=== PATIENT | male | born 2000 | race Caucasian/White ===

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

== ENCOUNTER 2020-03-29 21:11 | Emergency (ER) | payer BC ==
[2020-03-29] MEDS ORDERED: Ketorolac 30 MG/ML SDV IVPUSH ONE (22:29)
--- NOTE | 2020-03-29 23:00 | CR ---
INDICATION: Chest pain TECHNIQUE: Portable upright AP view of the chest COMPARISON: None FINDINGS: The lungs are clear. There is no sizable pleural effusion or pneumothorax. The cardiomediastinal silhouette is normal. The visualized osseous structures are unremarkable. IMPRESSION: No acute intrathoracic process. Dictated by James Siddiqui MD @ Mar 29 2020 10:57PM Signed by Dr. James Siddiqui @ Mar 29 2020 10:58PM
--- NOTE | 2020-03-29 23:44 | EDM.PDOC ---
ED HPI GENERAL MEDICAL PROBLEM - General Chief Complaint: Chest Pain Stated Complaint: CHEST PAIN;BACK PAINLDIFFICULTY BREATHING Time Seen by Provider: 03/29/20 21:35 - History of Present Illness INITIAL COMMENTS - FREE TEXT/NARRATIVE: CHIEF COMPLAINT(S): Chest pain HISTORY OF PRESENT ILLNESS: This is a 20-year-old man without any significant past medical history who comes to the emergency department with a chief complaint of chest pain. 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 He denies any heavy lifting. He states that he started to experience chest pain which is located on the left side of his chest which she describes as sharp and achy and constant. He states that the pain is a 4 out of 10. He states that the pain is exacerbated by deep breathing and is better when he takes smaller breaths. He denies any radiation of this pain. He states that in addition to the chest pain he is experiencing back and neck pain both on the left side which she describes as constant, sharp, and achy. He denies any numbness, tingling, or weakness. He denies any injury. He states he does feel mildly short of breath but denies any cough. He denies any fever, chills, or history of asthma. He denies any recent surgery or history of prior DVT or PE. He denies any family history of clotting disorders. He denies any abdominal pain, nausea or vomiting. He states that he does not have a rash. He denies any personal history or family history of Marfan's disease or connective tissue disorders. He denies any family history of sudden at a young age from cardiac cause. He denies any other symptoms. REVIEW OF SYSTEMS: Constitutional: Denies fever, chills. Eyes: Denies eye pain Ears, Nose, Mouth, & Throat: Denies earache Cardiovascular: Positive for chest pain Respiratory: Denies shortness of breath Gastrointestinal: Denies Nausea, vomiting, diarrhea, hematochezia. Genitourinary: Denies hematuria MSK: Positive for back pain and neck pain Neurological: Denies blurred vision Psychiatric: Denies depression PAST MEDICAL HISTORY: As per history of present illness and as reviewed below otherwise noncontributory. SURGICAL HISTORY: As per history of present illness and as reviewed below otherwise noncontributory. SOCIAL HISTORY: Positive for vaping tobacco, marijuana use. Occasional alcohol use. Denies other illicit substances. FAMILY HISTORY: As per history of present illness and as reviewed below otherwise noncontributory. EXAMINATION OF ORGAN SYSTEMS/BODY AREAS: Constitutional: Heart rate was 81, respiratory rate 14 with an oxygen saturation 97% on room air. Temperature 36.7. Blood pressure was 123/74. General: Overall well-appearing young man who is in no acute distress Psychiatric: Appropriate mood and affect. Eyes: No scleral icterus or conjunctival erythema ENMT: Moist mucous membranes. No pharyngeal erythema Cardiovascular: Regular, rate, and rhythm. No gallops, murmurs, or rubs. Bilateral upper extremity pulses symmetric and intact. No peripheral edema. No JVD. Respiratory: Lungs clear to auscultation bilaterally. No wheezes, rales, or rhonchi. Gastrointestinal: Soft, non-tender, non-distended. Normoactive bowel sounds Genitourinary: No suprapubic tenderness Musculoskeletal: Normal range of motion. No tenderness to palpation along the midline cervical, thoracic, or lumbar region. There is no paracervical or parathoracic muscle tenderness. Patient has full range of motion of the neck and back. Skin: No lesions or abrasions. Neurological: Alert, GCS 15 distal sensation is intact in upper and lower extremities bilaterally. Strength and sensation grossly intact. MEDICAL DECISION MAKING AND COURSE IN THE ED WITH INTERPRETATION/REVIEW OF DIAGNOSTIC STUDIES: This is a 20-year-old man and without any significant past medical history who comes to the emergency department with chest pain, back pain, and neck pain who has normal vital signs and overall appears well with no significant or personal family history. At this time I do believe this is likely musculoskeletal in nature however will we will obtain a screening EKG and obtain a chest x-ray. We will provide the patient with Toradol IM and evaluate for improvement in pain. PERC Rule Age (>/=50): No (0) HR (>/=100): No (0) SaO2 on RA <95%: No (0) Unilateral Leg Swelling: No (0) Hemoptysis: No (0) Surgery/Trauma in last month requiring general anesthesia: No (0) Prior PE or DVT: : No (0) Hormone Use: No (0) PERC negative Since patient is PERC negative and pre-test probability <15%, there is no need for more intensive workup, <2% chance of PE Twelve-lead EKG interpreted by myself. Normal sinus rhythm at a rate of 79beats per minute. Normal axis. CO interval is 133ms. QRS duration is 100ms. ST segments are normal without elevations or depressions. No Q waves present. Hypertrophy not noted interpretation: Normal sinus rhythm. No prior EKGs in our system. The radiological images were viewed by myself along with reading the report from the radiologist. Chest x-ray does not reveal any acute cardiopulmonary process. After labs and imaging I did reevaluate the patient. He states that his pain had improved. I did discuss with him at this time that I do believe his pain is likely secondary to musculoskeletal strain versus costochondritis. I discussed the use of [id number] Tylenol and Motrin for pain relief or Voltaren cream. He is to return to the emergency department for any new worsening symptoms such as worsening chest pain, shortness of breath, or syncope. He did express understanding and was amenable discharge at this time. DISPOSITION: The patient was discharged home in stable condition. The patient will follow up with primary care physician as needed CONDITION: Fair PROCEDURES: None FINAL IMPRESSION(S)/DIAGNOSES: 1. Acute atypical chest pain likely secondary to costochondritis Brandon Wilkes M.D. Left Upper Chest Pain Score (Numeric/FACES): 7 - Related Data Allergies Allergy/AdvReac Type Severity Reaction Status Date / Time vancomycin Allergy Rash Verified 03/29/20 21:29 Home Meds: Home Meds . [No Known Home Meds] 03/29/20 [History] Past Medical History - Past Health History Medical/Surgical History: Denies Medical/Surgical History HEENT History: Reports: None Cardiovascular History: Reports: None Respiratory History: Reports: None Gastrointestinal History: Reports: Other (See Below) Other Gastrointestinal History: stomach ulcer Genitourinary History: Reports: None Musculoskeletal History: Reports: None Neurological History: Reports: None Psychiatric History: Reports: Anxiety, Depression Endocrine/Metabolic History: Reports: None Hematologic History: Reports: None Immunologic History: Reports: None Oncologic (Cancer) History: Reports: None Dermatologic History: Reports: Cellulitis, Other (See Below) Other Dermatologic History: from cat bite - Infectious Disease History Infectious Disease History: Reports: None - Past Surgical History Head Surgeries/Procedures: Reports: None Social & Family History - Family History Family Medical History: Noncontributory - Caffeine Use Caffeine Use: Reports: Coffee, Energy Drinks, Soda - Recreational Drug Use Recreational Drug Use: Yes Drug Use in Last 12 Months: Yes Recreational Drug Type: Reports: Marijuana/Hashish Recreational Drug Use Frequency: Socially ED ROS GENERAL - Review of Systems Review Of Systems: See Below ED EXAM, GENERAL - Physical Exam Exam: See Below Course - Vital Signs Last Recorded V/S: Last Vital Signs Temp 36.3 C 03/30/20 00:00 Pulse 62 03/30/20 00:00 Resp 18 03/30/20 00:00 BP 116/62 03/30/20 00:00 Pulse Ox 97 03/30/20 00:00 - Orders/Labs/Meds Meds: Medications Discontinued Medications Generic Name Dose Route Start Last Admin Trade Name Denq PRN Reason Stop Dose Admin Ketorolac Tromethamine 15 mg 03/29/20 22:29 03/29/20 22:41 Toradol IVPUSH 03/29/20 22:30 15 mg ONETIME ONE Administration Departure - Departure Time of Disposition: 23:43 Disposition: Home, Self-Care 01 Condition: Fair Clinical Impression: Costochondritis - Discharge Information *PRESCRIPTION DRUG MONITORING PROGRAM REVIEWED*: No *COPY OF PRESCRIPTION DRUG MONITORING REPORT IN PATIENT KHURRAM: No Instructions: Costochondritis, [id number], Nonspecific Chest Pain, Adult, [id number] Referrals: PCP,None [Primary Care Provider] - Forms: ED Department Discharge Additional Instructions: The patient is informed of any results of their evaluation and diagnostic workup and all questions are answered. They are given discharge instructions and return precautions. The patient is stable for discharge. The patient states they understand and agree with the plan and that they will return if their symptoms get worse or if they have any new concerns. The following information is given to patients seen in the emergency department who are being discharged to home. This information is to outline your options for follow-up care. We provide all patients seen in our emergency department with a follow-up referral. The need for follow-up, as well as the timing and circumstances, are variable depending upon the specifics of your emergency department visit. If you don't have a primary care physician on staff, we will provide you with a referral. We always advise you to contact your personal physician following an emergency department visit to inform them of the circumstance of the visit and for follow-up with them and/or the need for any referrals to a consulting specialist. The emergency department will also refer you to a specialist when appropriate. This referral assures that you have the opportunity for follow-up care with a specialist. All of these measure are taken in an effort to provide you with optimal care, which includes your follow-up. Under all circumstances we always encourage you to contact your private physician who remains a resource for coordinating your care. When calling for follow-up care, please make the office aware that this follow-up is from your recent emergency room visit. If for any reason you are refused follow-up, please contact the [facility] Emergency Department at and asked to speak to the emergency department charge nurse. Today you were evaluated in the emergency department for chest pain and back pain your imaging and rhythm strip of your heart were normal. At this time I do believe your symptoms are secondary to costochondritis which is inflammation of your ribs. Continue to use Tylenol for pain relief and purchase [id number] Voltaren to use as needed. Return to the emergency department if you have any new or worsening symptoms. In addition, please make an appoint with the primary care physician at one of the numbers below for follow-up. [facility] - Primary Care [address] [place] [address] [address] Sepsis Event Note (ED) - Evaluation Sepsis Screening Result: No Definite Risk - Focused Exam Vital Signs: Vital Signs Temp Pulse Resp BP Pulse Ox 03/30/20 00:00 36.3 C 62 18 116/62 97 03/29/20 22:30 70 18 101/70 97 03/29/20 21:25 36.7 C 81 14 123/74 97
== END 2020-03-30 00:02 | disposition home or self-care (01) ==
LOC: MW.ED 21:11
DX: M94.0 Chondrocostal junction syndrome [Tietze] (principal); Z88.1 Allergy status to other antibiotic agents
CPT/HCPCS: 71045; 93005; 96374; 99284; J1885

== ENCOUNTER 2025-03-21 14:18 | Emergency (ER) | payer SELFPAY | END 2025-03-21 16:36 | disposition home or self-care (01) | LOC: MW.ED 14:18 | DX: Z02.89 Encounter for other administrative examinations (principal); F41.9 Anxiety disorder, unspecified; Z79.899 Other long term (current) drug therapy; Z86.16 Personal history of COVID-19; Z88.8 Allergy status to other drugs, medicaments and biological substances | CPT/HCPCS: 99283 ==

== ENCOUNTER 2025-04-24 00:30 | Emergency (ER) | payer OTHER ==
[2025-04-24] MEDS: Sodium Chloride 0.9% 10 ML Syringe FLUSH PRN (00:50)
[2025-04-24] MEDS: Sodium Chloride 0.9% 2.5 ML Syringe FLUSH PRN (00:50)
[2025-04-24] MEDS: Ondansetron 4 MG/2 ML SDV IVPUSH ONE (00:50)
[2025-04-24 00:53] LABS: BASOPHILS ABSOLUTE AUTO 0.04 K/uL (0.00-0.20); BASOPHILS PERCENT AUTO 0.4 % (0.0-1.0); EOSINOPHILS ABSOLUTE AUTO 0.04 K/uL (0.00-0.45); EOSINOPHILS PERCENT AUTO 0.4 % (0.0-6.0); IMMATURE GRAN ABSOLUTE AUTO 0.02 K/uL (0.00-0.05); IMMATURE GRAN PERCENT AUTO 0.2 % (0.0-0.4); LYMPHOCYTES ABSOLUTE AUTO 2.23 K/uL (1.00-4.80); LYMPHOCYTES PERCENT AUTO 24.4 % (24.0-44.0); MEAN PLATELET VOLUME 9.0 fL (9.4-12.4); MONOCYTES ABSOLUTE AUTO 0.62 K/uL (0.00-0.80); MONOCYTES PERCENT AUTO 6.8 % (0.0-8.0); NEUTROPHILS ABSOLUTE AUTO 6.20 K/uL (1.80-7.70); NEUTROPHILS PERCENT AUTO 67.8 % (41.0-71.0); NRBC ABSOLUTE 0.00 K/uL (0.00-0.02); NRBC PERCENT 0.0 /100WBC (0.0-0.2); PLATELET COUNT,PLT 379 K/uL (150-400); RED BLOOD CELL COUNT 5.03 M/uL (4.52-5.90); WHITE BLOOD CELL COUNT,WBC 9.15 K/uL (3.9-11.3)
[2025-04-24 01:05] LABS: INR 1.05 (0.86-1.11); PTT,PARTIAL THROMBOPLSTIN TIME 24.2 SEC (23.9-30.7)
[2025-04-24] MEDS: Iopamidol 755 MG/ML 500 ML Multipack Bottle IVPUSH STA (01:12)
[2025-04-24 01:19] LABS: A/G RATIO 0.9 (0.9-1.6); ALANINE AMINOTRANSFERASE,ALT 29.0 IU/L (14-63); ASPARTATE AMNIOTRANSFERASE,AST 39.0 IU/L (15-37); BILIRUBIN TOTAL 0.3 mg/dL (0.2-1.0); BLOOD UREA NITROGEN,BUN 3.0 mg/dL (7.0-18.0); CARBON DIOXIDE,CO2 34.5 mmol/L (21.0-32.0); CHLORIDE,CL 105.0 mmol/L (98-107); CREATININE 0.8 mg/dL (0.8-1.3); EST CRCL DRUG DOSING (CG) 131.02 mL/min; ETHANOL BLOOD MEDICAL 228.0 mg/dL; GLUCOSE RANDOM 104.0 mg/dL (74-106); POTASSIUM,K 4.1 mmol/L (3.5-5.1); PROTEIN TOTAL,TP 7.4 g/dL (6.4-8.2); SODIUM,NA 143.0 mmol/L (136-148)
[2025-04-24 01:32] LABS: ESTIMATED GFR 125.0 mL/min (>60)
== END 2025-04-24 02:25 | disposition home or self-care (01) ==
LOC: MW.ED 00:30
DX: R10.84 Generalized abdominal pain (principal); R51.9 Headache, unspecified; R07.9 Chest pain, unspecified; M54.2 Cervicalgia; Z79.899 Other long term (current) drug therapy; Z86.16 Personal history of COVID-19; Z88.8 Allergy status to other drugs, medicaments and biological substances; V49.9XXA Car occupant (driver) (passenger) injured in unspecified traffic accident, initial encounter
CPT/HCPCS: 36415; 70450; 71260; 72125; 74177; 80053; 80307; 84484; 85025; 85610; 85730; 99284; A9270; Q9967